=== PATIENT | female | born 1990 | race African-American/Black ===

== ENCOUNTER 2019-10-31 05:48 | Inpatient (IN) ==
[2019-10-31] MEDS ORDERED: ACETAMINOPHEN 325 MG TABLET PO PRN ×2 (06:01→16:59)
[2019-10-31] MEDS ORDERED: MEPERIDINE 50 MG/1 ML VIAL IV PRN (06:01)
[2019-10-31] MEDS ORDERED: ONDANSETRON 4 MG/2 ML VIAL IV PRN (06:01)
[2019-10-31] MEDS ORDERED: LACTATED RINGERS 500 ML IV PRN (06:01)
[2019-10-31] MEDS ORDERED: BUTORPHANOL 2 MG/ML VIAL IV PRN (06:01)
[2019-10-31] MEDS: LACTATED RINGERS 1,000 ML IV SCH ×2 (06:27→09:09)
[2019-10-31] MEDS ORDERED: OXYTOCIN/LR 20 UNIT/1,000 ML BAG IV SCH (06:30)
[2019-10-31 06:31] LABS: Basophils % 0.3 % (0.0-0.8); Eosinophils # 0.1 10*3/uL (0.0-0.87); Eosinophils % 1.3 % (0.00-10.9); Hematocrit 33.7 VOL% (35.7-47.0); Hemoglobin 10.8 GM/DL (12.0-16.0); Immature Granulocytes % 1.1 %; Immature Granulocytes Absolute 0.12 #; Lymphocytes # 2.6 10*3/uL (1.4-4.0); Lymphocytes % 24.3 % (21.3-54.2); Mean Platelet Volume 10.8 FL (9.6-12.0); Monocytes % 6.5 % (1.7-12.7); Neutrophils % 66.5 % (38.7-73.9); Platelet Count 284 T/CUMM (130-400); Red Blood Count 3.44 MC/CUMM (3.8-5.5); Red Cell Distribution Width 14.3 % (9.3-17.3); White Blood Count 10.8 T/CUMM (4-12)
[2019-10-31 06:59] LABS: Albumin 2.7 G/DL (3.4-5.0); Bilirubin,Total 0.5 MG/DL (0.2-1.0); Calcium 8.9 MG/DL (8.5-10.1); Total Protein 7.5 G/DL (6.4-8.3)
[2019-10-31] MEDS ORDERED: diphenhydrAMINE 50 MG/1 ML VIAL IV PRN ×2 (07:30)
[2019-10-31] MEDS ORDERED: ePHEDrine 50 MG/ML AMP IV PRN (07:30)
[2019-10-31] MEDS ORDERED: fentaNYL 2 MCG/ROPIV 0.2% EPID 100 ML EPIDURAL SCH (07:30)
[2019-10-31] MEDS ORDERED: PROMETHAZINE 25 MG/1 ML VIAL IM ONE (07:30)
[2019-10-31] MEDS ORDERED: ONDANSETRON 4 MG/2 ML VIAL IV ONE (07:30)
[2019-10-31] MEDS ORDERED: FAMOTIDINE 20 MG/2 ML VIAL IV ONE (07:30)
[2019-10-31] MEDS ORDERED: NALOXONE 0.4 MG/ML VIAL IV PRN (07:30)
[2019-10-31] MEDS ORDERED: hydrOXYzine HCL 25 MG/1 ML VIAL IM PRN (07:30)
[2019-10-31] MEDS ORDERED: CITRIC ACID/SODIUM CITRATE 30 ML UDCUP PO ONE (07:30)
[2019-10-31] MEDS ORDERED: AMPICILLIN INJ 2,000 MG in SODIUM CHLORIDE 0.9% 100 ML IV ONE (08:29)
[2019-10-31 11:09] LABS: Apearance,Urine CLEAR (Clear); Bilirubin,Urine Negative (Negative); Blood, Urine Negative (Negative); Glucose,Urine (UA) Negative (Negative); Ketones,Urine Negative (Negative); Nitrite,Urine Negative (Negative); Protein,Urine Negative; RBC,Urine <1 /HPF (0-4); Urine Color Straw (Yellow); Urine Specific Gravity 1.006 (1.001-1.035); Urine Urobilinogen < 2.0 EU/DL (0.2-1.0)
[2019-10-31] MEDS ORDERED: TRANEXAMIC ACID 1,000 MG/10 ML VIAL ONE (12:08)
[2019-10-31] MEDS ORDERED: miSOPROStoL 200 MCG TABLET ONE (12:08)
[2019-10-31] MEDS ORDERED: METHYLERGONOVINE 0.2 MG/1 ML AMP ONE (12:09)
[2019-10-31] MEDS ORDERED: CARBOPROST TROMETHAMINE 250 MCG/ML AMP IM ONE (12:09)
[2019-10-31] MEDS ORDERED: AMPICILLIN INJ 1,000 MG in SODIUM CHLORIDE 0.9% 100 ML IV SCH (12:30)
[2019-10-31] MEDS ORDERED: OXYTOCIN/LR 20 UNIT/1,000 ML BAG IV ONE (16:59)
[2019-10-31] MEDS ORDERED: RHO(D) IMMUNE GLOBULIN 300 MCG SYRINGE IM ONE (16:59)
[2019-10-31] MEDS ORDERED: BENZOCAINE 20%/MENTHOL 0.5% SPRAY 56 GM CAN TOP PRN (16:59)
[2019-10-31] MEDS ORDERED: WITCH HAZEL PADS 100/JAR TOP PRN (16:59)
[2019-10-31] MEDS ORDERED: oxyCODONE/ACETAMINOPHEN 5-325 MG TABLET PO PRN ×2 (16:59)
[2019-10-31] MEDS ORDERED: DIPH/TET/ACEL PERT BOOSTER VACCINE 0.5 ML VIAL IM ONE (16:59)
[2019-10-31] MEDS ORDERED: BISACODYL 10 MG SUPP RECTAL PRN (16:59)
[2019-10-31] MEDS ORDERED: LANOLIN 50% CREAM 0.3 OZ TUBE TOP PRN (16:59)
[2019-10-31] MEDS ORDERED: MEASLES/MUMPS/RUBELLA VACCINE 0.5 ML VIAL SUBCUT ONE (16:59)
[2019-10-31] MEDS ORDERED: HYDROCORTISONE 2.5% RECTAL CREAM 30 GM TUBE TOP PRN (16:59)
[2019-10-31] MEDS: IBUPROFEN 800 MG TABLET PO PRN (20:00)
[2019-10-31] MEDS: DOCUSATE SODIUM 100 MG CAPSULE PO SCH (21:58)
[2019-11-01 06:16] LABS: Basophils % 0.2 % (0.0-0.8); Eosinophils # 0.1 10*3/uL (0.0-0.87); Eosinophils % 0.7 % (0.00-10.9); Hematocrit 30.7 VOL% (35.7-47.0); Immature Granulocytes % 1.2 %; Immature Granulocytes Absolute 0.22 #; Lymphocytes # 2.6 10*3/uL (1.4-4.0); Lymphocytes % 14.8 % (21.3-54.2); Mean Corpuscular HGB Conc 32.6 GM/DL (32-36); Mean Corpuscular Volume 95.9 FL (87-102); Mean Platelet Volume 11.2 FL (9.6-12.0); Monocytes % 6.5 % (1.7-12.7); Neutrophils % 76.6 % (38.7-73.9); Platelet Count 238 T/CUMM (130-400); White Blood Count 17.9 T/CUMM (4-12)
[2019-11-01] MEDS: DOCUSATE SODIUM 100 MG CAPSULE PO SCH ×2 (09:04→19:48)
[2019-11-01] MEDS: IBUPROFEN 800 MG TABLET PO PRN (19:47)
[2019-11-02] MEDS: DOCUSATE SODIUM 100 MG CAPSULE PO SCH ×2 (00:22→08:28)
[2019-11-02 15:37] VITALS: BP 118/88
== END 2019-11-02 13:55 | disposition home or self-care (01) | DRG 807 ==
LOC: N.LDOUT 05:48 → N.LD 05:49 → N.OB 16:13
PROVIDERS: ADMIT Obstetrics & Gynecology; ATTEND Obstetrics & Gynecology

== ENCOUNTER 2022-12-28 19:57 | Inpatient (IN) ==
[2022-12-28] MEDS ORDERED: OXYTOCIN/LR 20 UNIT/1,000 ML BAG IV ONE ×3 (20:08→20:45)
[2022-12-28] MEDS ORDERED: CARBOPROST TROMETHAMINE 250 MCG/ML AMP IM ONE (20:08)
[2022-12-28] MEDS ORDERED: METHYLERGONOVINE 0.2 MG/1 ML AMP ONE (20:08)
[2022-12-28] MEDS ORDERED: miSOPROStoL 200 MCG TABLET ONE (20:08)
[2022-12-28] MEDS ORDERED: TRANEXAMIC ACID 1,000 MG/10 ML VIAL ONE (20:08)
[2022-12-28] MEDS ORDERED: SODIUM CHLORIDE 0.9% 0 ML IV ONE (20:08)
[2022-12-28] MEDS ORDERED: ONDANSETRON 4 MG/2 ML VIAL IV PRN ×2 (20:13→20:45)
[2022-12-28] MEDS ORDERED: BUTORPHANOL 2 MG/ML VIAL IV PRN (20:13)
[2022-12-28] MEDS ORDERED: LACTATED RINGERS 500 ML IV PRN (20:13)
[2022-12-28] MEDS ORDERED: miSOPROStoL 200 MCG TABLET RECTAL PRN (20:13)
[2022-12-28] MEDS ORDERED: METHYLERGONOVINE 0.2 MG/1 ML AMP IM PRN (20:13)
[2022-12-28] MEDS ORDERED: CARBOPROST TROMETHAMINE 250 MCG/ML AMP IM PRN (20:13)
[2022-12-28] MEDS ORDERED: TRANEXAMIC ACID 1,000 MG in SODIUM CHLORIDE 0.9% 100 ML IV PRN (20:13)
[2022-12-28] MEDS ORDERED: MEPERIDINE 50 MG/1 ML VIAL IV PRN (20:13)
[2022-12-28] MEDS ORDERED: OXYTOCIN/LR 30 UNIT/1,000 ML BAG IV ONE (20:14)
[2022-12-28] MEDS ORDERED: OXYTOCIN/LR 20 UNIT/1,000 ML BAG IV SCH (20:30)
[2022-12-28] MEDS ORDERED: LACTATED RINGERS 1,000 ML IV SCH (20:30)
[2022-12-28] MEDS ORDERED: WITCH HAZEL PADS 100/JAR TOP PRN (20:45)
[2022-12-28] MEDS ORDERED: HYDROCORTISONE 2.5% RECTAL CREAM 30 GM TUBE TOP PRN (20:45)
[2022-12-28] MEDS ORDERED: BENZOCAINE 20%/MENTHOL 0.5% SPRAY 56 GM CAN TOP PRN (20:45)
[2022-12-28] MEDS ORDERED: BISACODYL 10 MG SUPP RECTAL PRN (20:45)
[2022-12-28] MEDS ORDERED: LANOLIN 50% CREAM 0.3 OZ TUBE TOP PRN (20:45)
[2022-12-28] MEDS ORDERED: oxyCODONE/ACETAMINOPHEN 5-325 MG TABLET PO PRN ×2 (20:45)
[2022-12-28] MEDS ORDERED: ACETAMINOPHEN 325 MG TABLET PO PRN (20:45)
[2022-12-28] MEDS ORDERED: RHO(D) IMMUNE GLOBULIN 300 MCG SYRINGE IM ONE (20:45)
[2022-12-28] MEDS ORDERED: DIPH/TET/ACEL PERT BOOSTER VACCINE 0.5 ML VIAL IM ONE (20:45)
[2022-12-28] MEDS ORDERED: MEASLES/MUMPS/RUBELLA VACCINE 0.5 ML VIAL SUBCUT ONE (20:45)
[2022-12-28 20:47] LABS: Cord Arterial Blood HCO3 19.4 MMOL/L
[2022-12-28 20:50] LABS: Cord Venous Blood HCO3 21.6 MMOL/L; Cord Venous Blood PCO2 42.2 MMHG; Cord Venous Blood PO2 32.3
[2022-12-28 20:53] LABS: Basophils % 0.2 % (0.0-0.8); Eosinophils # 0.1 10*3/uL (0.0-0.87); Eosinophils % 0.7 % (0.00-10.9); Hematocrit 34.9 VOL% (35.7-47.0); Hemoglobin 11.8 GM/DL (12.0-16.0); Immature Granulocytes % 1.1 %; Immature Granulocytes Absolute 0.12 #; Lymphocytes # 3.3 10*3/uL (1.4-4.0); Lymphocytes % 29.2 % (21.3-54.2); Mean Corpuscular HGB Conc 33.8 GM/DL (32-36); Mean Corpuscular Volume 94.3 FL (87-102); Monocytes # 0.8 10*3/uL (0.11-0.8); Monocytes % 6.8 % (1.7-12.7); Platelet Count 325 T/CUMM (130-400); White Blood Count 11.21 T/CUMM (4-12)
[2022-12-28] MEDS: DOCUSATE SODIUM 100 MG CAPSULE PO SCH (21:02)
[2022-12-29 05:59] LABS: Basophils % 0.2 % (0.0-0.8); Eosinophils % 0.3 % (0.00-10.9); Hematocrit 31.4 VOL% (35.7-47.0); Hemoglobin 10.8 GM/DL (12.0-16.0); Immature Granulocytes % 0.8 %; Immature Granulocytes Absolute 0.09 #; Lymphocytes % 17.1 % (21.3-54.2); Mean Corpuscular HGB Conc 34.4 GM/DL (32-36); Mean Corpuscular Volume 99.1 FL (87-102); Mean Platelet Volume 10.6 FL (9.6-12.0); Monocytes # 0.7 10*3/uL (0.11-0.8); Monocytes % 5.8 % (1.7-12.7); Neutrophils % 75.8 % (38.7-73.9); Platelet Count 253 T/CUMM (130-400); Red Blood Count 3.17 MC/CUMM (3.8-5.5); Red Cell Distribution Width 14.6 % (9.3-17.3); White Blood Count 11.38 T/CUMM (4-12)
[2022-12-29] MEDS: DOCUSATE SODIUM 100 MG CAPSULE PO SCH ×2 (08:07→20:54)
[2022-12-29] MEDS: IBUPROFEN 800 MG TABLET PO PRN (19:39)
[2022-12-30] MEDS: IBUPROFEN 800 MG TABLET PO PRN (03:33)
[2022-12-30 07:19] VITALS: BP 94/53
[2022-12-30] MEDS: DOCUSATE SODIUM 100 MG CAPSULE PO SCH (08:44)
== END 2022-12-30 12:00 | disposition home or self-care (01) | DRG 807 ==
LOC: N.LDOUT 19:57 → N.LD 19:59 → N.OB 23:50
PROVIDERS: ADMIT Obstetrics & Gynecology; ATTEND Obstetrics & Gynecology